=== PATIENT | male | born 1955 | race Caucasian/White ===

== ENCOUNTER → 2016-10-12 | Outpatient (CLI) | payer BC ==
[2014-04-12 10:35] VITALS: BP 137/79
[~2016-10-12] MED LIST: BYSTOLIC5 MG PO; LEXAPRO10 MG PO; LIPITOR 40MG TA40 MG PO; TRIBENZOR 10 MG1 TA1 PO; VESICARE PO; XANAX1 MG PO
== END ==
LOC: LAB 09:46
DX: Z12.5 Encounter for screening for malignant neoplasm of prostate (principal)

== ENCOUNTER 2017-03-28 15:26 | Emergency (ER) | payer BC ==
[~2017-03-28] VITALS: Wt 113.9 kg
[~2017-03-28 15:26] MED LIST changes: +LEXAPRO 10MG10 MG PO; -LEXAPRO10 MG PO; -VESICARE PO; +VESICARE5 MG PO
[2017-03-28] MEDS ORDERED: GLIPIZIDE10 M2 PO (15:36)
[2017-03-28] MEDS ORDERED: ZOLPIDEM TART10 MG PO (15:36)
[2017-03-28] MEDS ORDERED: BISOPROLOL FUMA1 TA1 PO (15:37)
[2017-03-28 18:12] VITALS: BP 146/76
== END 2017-03-28 18:11 | disposition short-term general hospital (02) ==
LOC: ED 15:26
DX: S06.5X9A Traumatic subdural hemorrhage with loss of consciousness of unspecified duration, initial encounter (principal); S01.01XA Laceration without foreign body of scalp, initial encounter; W11.XXXA Fall on and from ladder, initial encounter; Y92.008 Other place in unspecified non-institutional (private) residence as the place of occurrence of the external cause; M54.5 Low back pain; R40.2412 Glasgow coma scale score 13-15, at arrival to emergency department; I10 Essential (primary) hypertension; E10.9 Type 1 diabetes mellitus without complications; Z98.1 Arthrodesis status; M25.552 Pain in left hip; Z79.84 Long term (current) use of oral hypoglycemic drugs; G89.29 Other chronic pain
CPT/HCPCS: J1885; J1953; J2405; J3010; L0150

== ENCOUNTER → 2017-06-15 | Outpatient (RCR) | payer BC ==
[2014-04-12 10:35] VITALS: BP 137/79
[~2017-06-15] MED LIST changes: +BISOPROLOL FUMA1 TA1 PO; +GLIPIZIDE10 M2 PO; +ZOLPIDEM TART10 MG PO
== END | disposition home or self-care (01) ==
LOC: PT
DX: M75.42 Impingement syndrome of left shoulder (principal)

== ENCOUNTER 2017-06-24 09:30 | Outpatient (RCR) | payer BC | END 2017-06-24 10:00 | disposition home or self-care (01) | LOC: PT 09:30 | DX: M25.512 Pain in left shoulder (principal) ==

== ENCOUNTER → 2017-10-18 | Outpatient (CLI) | payer BC | LOC: LAB 10:16 | DX: R35.0 Frequency of micturition (principal) ==

== ENCOUNTER 2020-09-29 16:26 | Emergency (ER) | payer MEDICARE ==
[2020-09-29] MEDS ORDERED: XANAX 1MG1 MG PO (16:34)
[2020-09-29] MEDS ORDERED: ATORVASTATIN CA40 MG PO (16:35)
[2020-09-29] MEDS ORDERED: NORVASC 10MG10 MG PO (16:35)
[2020-09-29] MEDS ORDERED: CELEXA 20MG20 MG/TA1 PO (16:35)
[2020-09-29] MEDS ORDERED: ROBAXIN 75750 MG/TA1 PO (16:36)
[2020-09-29] MEDS ORDERED: OXYCODONE HCL20 M1 PO (16:36)
[2020-09-29] MEDS ORDERED: MYRBETRIQ50 MG PO (16:36)
[2020-09-29] MEDS ORDERED: GLUCOPHAGE PO (16:36)
[2020-09-29 17:55] VITALS: BP 126/71
== END 2020-09-29 17:51 | disposition home or self-care (01) ==
LOC: ED 16:26
DX: I83.892 Varicose veins of left lower extremity with other complications (principal); I10 Essential (primary) hypertension; E11.9 Type 2 diabetes mellitus without complications; G89.29 Other chronic pain; M54.9 Dorsalgia, unspecified; Z79.84 Long term (current) use of oral hypoglycemic drugs; Z79.891 Long term (current) use of opiate analgesic; X58.XXXA Exposure to other specified factors, initial encounter; Y92.009 Unspecified place in unspecified non-institutional (private) residence as the place of occurrence of the external cause

== ENCOUNTER → 2020-10-08 | Outpatient (CLI) | payer MEDICARE ==
[2020-09-29 17:55] VITALS: BP 126/71
[~2020-10-08] MED LIST changes: +ATORVASTATIN CA40 MG PO; +CELEXA 20MG20 MG/TA1 PO; +GLUCOPHAGE PO; +MYRBETRIQ50 MG PO; +NORVASC 10MG10 MG PO; +OXYCODONE HCL20 M1 PO; +ROBAXIN 75750 MG/TA1 PO; +XANAX 1MG1 MG PO
== END ==
LOC: RAD 07:45
DX: M51.26 Other intervertebral disc displacement, lumbar region (principal); M48.061 Spinal stenosis, lumbar region without neurogenic claudication; M51.36 Other intervertebral disc degeneration, lumbar region; M47.816 Spondylosis without myelopathy or radiculopathy, lumbar region
CPT/HCPCS: A9585

== ENCOUNTER 2020-11-26 09:56 | Outpatient (RCR) | payer MEDICARE | END 2021-01-27 17:00 | LOC: PT 09:56 | DX: M54.2 Cervicalgia (principal); Z98.890 Other specified postprocedural states ==

== ENCOUNTER → 2020-12-24 | Outpatient (CLI) | payer MEDICARE | LOC: RAD 08:07 | DX: M50.30 Other cervical disc degeneration, unspecified cervical region (principal); Z98.890 Other specified postprocedural states; M43.22 Fusion of spine, cervical region; M48.02 Spinal stenosis, cervical region; M48.03 Spinal stenosis, cervicothoracic region ==

== ENCOUNTER 2021-04-03 12:51 | Outpatient (RCR) | payer MEDICARE | END 2021-05-09 17:00 | LOC: PT 12:51 | DX: M54.2 Cervicalgia (principal); Z98.890 Other specified postprocedural states ==

== ENCOUNTER 2021-07-29 14:30 | Outpatient (RCR) | payer MEDICARE | END 2021-08-25 13:19 | disposition home or self-care (01) | LOC: OT 14:30 | DX: Z96.692 Finger-joint replacement of left hand (principal) ==

== ENCOUNTER 2022-08-26 07:58 | Outpatient (RCR) | payer MEDICARE | END 2022-09-25 | disposition home or self-care (01) | LOC: PT | DX: M17.11 Unilateral primary osteoarthritis, right knee (principal); Z96.651 Presence of right artificial knee joint ==

== ENCOUNTER 2023-05-11 09:53 | Outpatient (RCR) | payer MEDICARE ==
[~2023-05-11 09:53] MED LIST changes: +HYZAAR 100-251 EACH PO; +METFORMIN HYD1000 MG PO; +MORGIDOX 1X100100 MG PO; +OXYCODONE HCL10 M1 PO
== END 2023-05-27 | disposition home or self-care (01) ==
LOC: OT
DX: E11.9 Type 2 diabetes mellitus without complications (principal); M19.90 Unspecified osteoarthritis, unspecified site; I10 Essential (primary) hypertension

== ENCOUNTER 2023-05-28 08:00 | Outpatient (RCR) | payer MEDICARE | END 2023-06-18 08:49 | disposition home or self-care (01) | LOC: OT 08:00 | DX: Z98.890 Other specified postprocedural states (principal) ==

== ENCOUNTER 2024-08-24 15:02 | Outpatient (RCR) | payer MEDICARE | END 2024-08-25 | LOC: PT | DX: M25.562 Pain in left knee (principal) ==